=== PATIENT | female | born 1945 | race Two or more races ===

== ENCOUNTER 2018-01-23 12:44 | Inpatient (IN) | payer OTHER ==
[~2018-01-23] VITALS: Ht 154.9 cm; Wt 95.3 kg
[~2018-01-23 12:44] MED LIST: CARTIA XT120 MG; DIOVAN40 MG; FAMOTIDINE20 MG PO; FUERA DE FORMULARIO PO; SYNTHROID50 MCG; Synthroid PO; TAMBOCOR50 MG; XOPENEX0.63 MG/3 IH
[2018-01-23] MEDS ORDERED: DIOVAN160 M1 (13:08)
[2018-01-23] MEDS ORDERED: XARELTO20 MG (13:08)
[2018-01-23] MEDS ORDERED: CARDIZEM CD180 M1 (13:08)
[2018-01-23] MEDS ORDERED: TAMBOCOR150 MG (13:08)
[2018-01-23] MEDS ORDERED: HYDRODIURIL12.5 MG (13:09)
[2018-01-23] MEDS ORDERED: SYNTHROID100 MCG (13:09)
[2018-01-25] MEDS ORDERED: XARELTO20 MG PO (10:05)
[2018-01-25] MEDS ORDERED: LEVAQUIN500 MG PO (10:05)
[2018-01-25] MEDS ORDERED: OMEPRAZOLE40 MG PO (10:06)
== END 2018-01-25 12:15 | disposition home or self-care (01) | DRG 871 ==
LOC: ER 12:44 → SURH 17:15 → MEDJ 17:15 → SURH 17:50
PROC: 3E0F7GC Introduction of Other Therapeutic Substance into Respiratory Tract, Via Natural or Artificial Opening (ICD-10-PCS; principal; 2018-01-23)
PROC: 4A033R1 Measurement of Arterial Saturation, Peripheral, Percutaneous Approach (ICD-10-PCS; 2018-01-23)
PROC: BB24ZZZ Computerized Tomography (CT Scan) of Bilateral Lungs (ICD-10-PCS; 2018-01-24)
DX: A41.9 Sepsis, unspecified organism (principal); J18.9 Pneumonia, unspecified organism; R09.02 Hypoxemia

== ENCOUNTER 2021-09-05 16:14 | Emergency (ER) | payer OTHER ==
[~2021-09-05] VITALS: Ht 157.5 cm; Wt 102.1 kg
[~2021-09-05 16:14] MED LIST changes: +CARDIZEM CD180 M1; +DIOVAN160 M1; +HYDRODIURIL12.5 MG; +LEVAQUIN500 MG PO; +OMEPRAZOLE40 MG PO; +SYNTHROID100 MCG; +TAMBOCOR150 MG; +XARELTO20 MG; +XARELTO20 MG PO
== END 2021-09-05 21:11 | disposition home or self-care (01) ==
LOC: ER 16:14
DX: R42 Dizziness and giddiness (principal); H61.21 Impacted cerumen, right ear; I10 Essential (primary) hypertension; Z91.013 Allergy to seafood

== ENCOUNTER 2022-04-18 11:54 | Inpatient (IN) | payer OTHER ==
[~2022-04-18] VITALS: Ht 154.9 cm; Wt 95.3 kg
== END 2022-04-20 18:27 | disposition home or self-care (01) | DRG 872 ==
LOC: ER 11:54 → MEDI 18:21 → SURH 18:21
PROVIDERS: ADMIT Internal Medicine; ATTEND Internal Medicine
PROC: B24BZZZ Ultrasonography of Heart with Aorta (ICD-10-PCS; principal; 2022-04-18)
PROC: 4A12X4Z Monitoring of Cardiac Electrical Activity, External Approach (ICD-10-PCS; 2022-04-19)
PROC: BW21ZZZ Computerized Tomography (CT Scan) of Abdomen and Pelvis (ICD-10-PCS; 2022-04-20)
DX: A41.9 Sepsis, unspecified organism (principal); N39.0 Urinary tract infection, site not specified; N17.8 Other acute kidney failure; E87.6 Hypokalemia; B96.20 Unspecified Escherichia coli [E. coli] as the cause of diseases classified elsewhere; I48.91 Unspecified atrial fibrillation; Z20.822 Contact with and (suspected) exposure to COVID-19

== ENCOUNTER 2022-10-31 12:27 | Emergency (ER) | payer OTHER ==
[~2022-10-31] VITALS: Ht 154.9 cm; Wt 95.3 kg
== END 2022-10-31 17:37 | disposition home or self-care (01) ==
LOC: ER 12:27
DX: K52.9 Noninfective gastroenteritis and colitis, unspecified (principal); B34.9 Viral infection, unspecified; E03.9 Hypothyroidism, unspecified; I10 Essential (primary) hypertension; F41.8 Other specified anxiety disorders; Z91.013 Allergy to seafood

== ENCOUNTER 2023-05-01 07:28 | Outpatient (CLI) | payer OTHER | END 2023-05-01 07:30 | disposition home or self-care (01) | LOC: NUCLEAR 07:28 | PROVIDERS: ATTEND Internal Medicine Cardiovascular Disease | DX: I20.0 Unstable angina (principal) | CPT/HCPCS: 78452; 93017; A9500 ==